=== PATIENT | female | born 1945 | race American Indian/Alaskan Native ===

== ENCOUNTER 2016-07-08 08:48 | Emergency (ER) | payer MEDICARE ==
[2016-07-08 09:02] VITALS: BP 152/71
--- NOTE | 2016-07-08 10:31 | XRay Report ---
LEFT KNEE, 3 views: History: Left knee pain and edema. Normal bone mineralization. Mild to moderate osteoarthritic changes are identified in the medial compartment and patellofemoral space. There is relative sparing of the lateral compartment. No fracture, bone lesion or joint effusion. IMPRESSION: Osteoarthritic changes. No acute process.
--- NOTE | 2016-07-08 10:56 | Emergency Department Report ---
ED Fall HPI - General Chief Complaint: Extremity Injury, Lower Stated Complaint: LFT KNEE PAIN Time Seen by Provider: 07/08/16 09:50 Source: patient Mode of arrival: Ambulatory - History of Present Illness Initial Comments: 71 y/o slip and fell ah hit left knee while getting out of truck . -: This morning Fall From: other (getting out of truck ) When Fall Occurred: 1 hour [employer] Fall Witnessed: yes, by family Place Fall Occurred: home Loss of Consciousness: none Prolonged Down Time?: no Symptoms Prior to Fall: none Location - Extremities: Left: Knee (edema noted) Severity: mild Severity scale (0 -10): 2 Quality: aching Context: tripped/slipped Associated Symptoms: denies - Related Data Home Medications Medication Instructions Recorded Confirmed Last Taken Aspirin 81 mg PO DAILY 07/08/16 07/08/16 07/06/16 Furosemide [Lasix] 20 mg PO QDAY 07/08/16 07/08/16 07/06/16 Multiple Vitamins For Women 07/08/16 07/06/16 Norvasc 10 mg PO DAILY 07/08/16 07/08/16 07/06/16 Potassium Chloride [Klor-Con 10] 07/08/16 07/06/16 Previous Rx's Medication Instructions Recorded Last Taken Type Ibuprofen [Motrin] 600 mg PO Q8H PRN #15 tablet 07/08/16 Unknown Rx Allergies Allergy/AdvReac Type Severity Reaction Status Date / Time No Known Allergies Allergy Unverified 07/08/16 08:56 ED Review of Systems ROS: Stated complaint: LFT KNEE PAIN Other details as noted in HPI Constitutional: denies: chills, fever Eyes: denies: eye pain, eye discharge, vision change ENT: denies: ear pain, throat pain Respiratory: denies: cough, shortness of breath, wheezing Cardiovascular: denies: chest pain, palpitations Endocrine: no symptoms reported Gastrointestinal: denies: abdominal pain, nausea, diarrhea Genitourinary: denies: urgency, dysuria, discharge Musculoskeletal: joint swelling. denies: back pain, arthralgia Skin: denies: rash, lesions Neurological: denies: headache, weakness, paresthesias Psychiatric: denies: anxiety, depression Hematological/Lymphatic: denies: easy bleeding, easy bruising ED Past Medical Hx - Past Medical History Previous Medical History?: Yes Hx Hypertension: Yes - Surgical History Past Surgical History?: Yes Additional Surgical History: Hysterectomy - Social History Smoking Status: Never Smoker Substance Use Type: Alcohol, Prescribed - Medications Home Medications: Home Medications Medication Instructions Recorded Confirmed Last Taken Type Aspirin 81 mg PO DAILY 07/08/16 07/08/16 07/06/16 History Furosemide [Lasix] 20 mg PO QDAY 07/08/16 07/08/16 07/06/16 History Ibuprofen [Motrin] 600 mg PO Q8H PRN #15 tablet 07/08/16 Unknown Rx Multiple Vitamins For Women 07/08/16 07/06/16 History Norvasc 10 mg PO DAILY 07/08/16 07/08/16 07/06/16 History Potassium Chloride [Klor-Con 10] 07/08/16 07/06/16 History ED Physical Exam - General Limitations: No Limitations General appearance: alert, in no apparent distress - Head Head exam: Present: atraumatic, normocephalic - Eye Eye exam: Present: normal appearance - ENT ENT exam: Present: mucous membranes moist - Neck Neck exam: Present: normal inspection - Respiratory Respiratory exam: Present: normal lung sounds bilaterally. Absent: respiratory distress - Cardiovascular Cardiovascular Exam: Present: regular rate, normal rhythm. Absent: systolic murmur, diastolic murmur, rubs, gallop - GI/Abdominal GI/Abdominal exam: Present: soft, normal bowel sounds - Extremities Exam Extremities exam: Present: normal inspection - Expanded Lower Extremity Exam Left Hip exam: Present: normal inspection, full ROM Upper Leg exam: Present: normal inspection, full ROM Knee exam: Present: full ROM, tenderness, swelling, full knee extension Lower Leg exam: Present: normal inspection, full ROM Ankle exam: Present: normal inspection, full ROM Foot/Toe exam: Present: normal inspection, full ROM Neuro vascular tendon exam: Present: no vascular compromise - Back Exam Back exam: Present: normal inspection - Neurological Exam Neurological exam: Present: alert, oriented X3 - Psychiatric Psychiatric exam: Present: normal affect, normal mood - Skin Skin exam: Present: warm, dry, intact, normal color. Absent: rash ED Course Vital Signs 07/08/16 08:58 Temperature 98.2 F Pulse Rate 73 Respiratory 18 Rate Blood Pressure 152/71 O2 Sat by Pulse 96 Oximetry ED Medical Decision Making - Radiology Data left knee 3 view impression: osteoarthritic changes no acute process - Medical Decision Making left knee osteoarthritic apply stephon wrap Critical care attestation.: If time is entered above; I have spent that time in minutes in the direct care of this critically ill patient, excluding procedure time. ED Disposition Clinical Impression: Osteoarthritis Qualifiers: Osteoarthritis location: knee Osteoarthritis type: post-traumatic Laterality: left Qualified Code(s): M17.32 - Unilateral post-traumatic osteoarthritis, left knee Disposition: DISCHARGED TO HOME OR SELFCARE Is pt being admited?: No Does the pt Need Aspirin: No Condition: Stable Instructions: Osteoarthritis (ED), RICE Therapy (ED) Prescriptions: Ibuprofen [Motrin] 600 mg PO Q8H PRN #15 tablet PRN Reason: Pain Time of Disposition: 10:58
== END 2016-07-08 11:13 | disposition home or self-care (01) ==
LOC: ED 08:48
DX: M17.32 Unilateral post-traumatic osteoarthritis, left knee (principal); I10 Essential (primary) hypertension; Z79.82 Long term (current) use of aspirin; W01.198A Fall on same level from slipping, tripping and stumbling with subsequent striking against other object, initial encounter; Y93.9 Activity, unspecified; Y99.9 Unspecified external cause status; Y92.009 Unspecified place in unspecified non-institutional (private) residence as the place of occurrence of the external cause
CPT/HCPCS: 99283

== ENCOUNTER 2016-07-25 09:24 | Emergency (ER) | payer MEDICARE ==
[2016-07-25] MEDS ORDERED: TYLENOL PO ONE ×2 (09:50→09:53)
[2016-07-25] MEDS ORDERED: CATAPRES PO ONE (09:58)
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
[2016-07-25] MEDS ORDERED: MORPHINE IV ONE ×2 (12:52→14:55)
[2016-07-25] MEDS ORDERED: ZOFRAN IV ONE (12:52)
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
[2016-07-25 13:36] LABS: Basophils % (Auto) 0.6 % (0.0-1.8); Eosinophils % (Auto) 0.4 % (0.0-4.3); Hematocrit 38.5 % (30.3-42.9); Hemoglobin 12.9 gm/dl (10.1-14.3); Mean Corpuscular HGB Conc 33 % (30-34); Mean Corpuscular Hemoglobin 30 pg (28-32); Mean Corpuscular Volume 90 fl (79-97); Platelet Count 210 K/mm3 (140-440); Red Cell Distribution Width 14.4 % (13.2-15.2); White Blood Count 10.6 K/mm3 (4.5-11.0)
--- NOTE | 2016-07-25 13:47 | XRay Report ---
Single view chest: History: Hypertension. Findings: Mild cardiomegaly. Trachea is in midline. No consolidation, pneumothorax or pleural effusion. Impression: Cardiomegaly. No acute lung changes.
[2016-07-25 13:53] LABS: Alanine Aminotransferase 16 units/L (7-56); Albumin 4.5 g/dL (3.9-5); Albumin/Globulin Ratio 1.2 %; Alkaline Phosphatase 74 units/L (35-129); Anion Gap 19 mmol/L; BUN/Creatinine Ratio 28.33; Bilirubin,Total 0.5 mg/dL (0.1-1.2); Blood Urea Nitrogen 17 mg/dL (7-17); Calcium 9.2 mg/dL (8.4-10.2); Carbon Dioxide 26 mmol/L (22-30); Chloride 98.7 mmol/L (98-107); Glucose 82 mg/dL (65-100); Potassium 4.1 mmol/L (3.6-5.0); Sodium 140 mmol/L (137-145); Total Protein 8.4 g/dL (6.3-8.2)
[2016-07-25 13:57] LABS: Bilirubin,Direct < 0.2 mg/dL (0-0.2)
[2016-07-25] MEDS ORDERED: NORMODYNE IV ONE (14:10)
[2016-07-25 14:26] LABS: INR 1.12 (0.87-1.13); Partial Thromboplastin Time 30.9 Sec. (24.2-36.6)
[2016-07-25] MEDS: NORMODYNE IV ONE ×2 (14:27→15:27)
[2016-07-25 14:35] LABS: Bilirubin,Urine NEG (Negative); Blood,Urine NEG (Negative); Ketones,Urine NEG (Negative); Leukocyte Esterase,Urine NEG (Negative); Mucus,Urine FEW /HPF; Nitrite,Urine NEG (Negative); Protein,Urine <15 mg/dL mg/dL (Negative); Urobilinogen,Urine < 2.0 mg/dL (<2.0); WBC,Urine < 1.0 /HPF (0.0-6.0)
[2016-07-25 17:29] VITALS: BP 148/72
== END 2016-07-25 16:15 | disposition home or self-care (01) ==
LOC: ED 09:24
DX: S82.142A Displaced bicondylar fracture of left tibia, initial encounter for closed fracture (principal); S93.402A Sprain of unspecified ligament of left ankle, initial encounter; I10 Essential (primary) hypertension; Z79.82 Long term (current) use of aspirin; V89.2XXA Person injured in unspecified motor-vehicle accident, traffic, initial encounter; Y93.9 Activity, unspecified; Y99.9 Unspecified external cause status; Y92.410 Unspecified street and highway as the place of occurrence of the external cause
CPT/HCPCS: 29505; 36415; 71010; 73562; 73590; 73600; 80048; 80074; 81001; 83880; 84484; 85025; 85610; 85730; 86850; 86900; 86901; 93005; 93010; 96374; 96375; 96376; 99285; J2270; J2405